=== PATIENT | female | born 1930 | race Caucasian/White ===

== ENCOUNTER 2017-12-05 09:44 | Emergency (ER) | payer OTHER, MEDICARE ==
[~2017-12-05] VITALS: Ht 162.6 cm; Wt 82.2 kg
[~2017-12-05 09:44] MED LIST: ASPI81CH8 PO; IBUP600T44 PO; LSN/10125 PO; OMEG10007 PO; OXYC-57 PO; PRAV10TA39 PO
[2017-12-05 09:50] VITALS: TEMP 36.4; Ht 162.6 cm; Wt 82.2 kg
[2017-12-05 09:59] VITALS: O2SAT 96
--- NOTE | 2017-12-05 10:08 | EMERGENCY ROOM VISIT NOTE ---
History Report prepared by Patrick: Piter Padilla Under the Supervision of: Dr. Chava Sexton M.D. First contact with patient: 09:55 Chief Complaint: CARDIAC ASSESSMENT Stated Complaint: SHARP CHEST PAIN History of Present Illness The patient is a 87 year old female who presents to the Emergency Room with complaints of sharp, stabbing left sided chest pain. The pain is intermittent and started 1 week ago. She denies syncope, SOB, nausea, and vomiting. She has been unable to sleep and states that cold compress has allowed her to rest. The pain does not worsen with movement and states she does not have lower extremity swelling. She reports taking blood pressure medication and has been seeing Dr. Kothari. She has a surgical history significant for mastectomy and cholecystectomy. She denies recent travel and a family history of blood clots. She denies blood thinner use. Source of History: patient Onset: 1 week ago Position: chest (left sided) Quality: stabbing Timing: constant Review of Systems See HPI for pertinent positives & negatives. A total of 10 systems reviewed and were otherwise negative. Past Medical & Surgical Surgical Problems: (1) History of mastectomy (2) Hx of cholecystectomy Social History Smoking Status: Never Smoker Current/Historical Medications Scheduled Aspirin (Chewable Aspirin), 81 MG PO DAILY Cholecalciferol (Vitamin D3), 1,000 INTER.UNIT PO DAILY Hctz/Lisinopril (Lisinopril/Hctz 10/12.5 Mg), 1 EA PO DAILY Valacyclovir Hcl (Valtrex), 1,000 MG PO TID Allergies Coded Allergies: Codeine (Verified Allergy, Severe, CANT BREATHE, 12/05/17) Physical Exam Vital Signs Date Time Temp Pulse Resp B/P (MAP) Pulse Ox O2 Delivery O2 Flow Rate FiO2 12/05/17 12:38 82 18 153/76 94 12/05/17 11:45 76 18 148/78 94 Room Air 12/05/17 10:19 92 Room Air 12/05/17 10:03 87 12/05/17 09:59 96 Room Air 12/05/17 09:50 36.4 89 18 192/83 96 Room Air Physical Exam GENERAL: Patient is anxious appearing and in minimal distress. HEENT: No acute trauma, normocephalic atraumatic, mucous membranes moist, no nasal congestion, no scleral icterus. NECK: No stridor, no adenopathy, no meningismus, trachea is midline. LUNGS: No dyspnea. Clear to auscultation and equal bilaterally. No wheeze, no rhonchi. HEART: Regular rate and rhythm. No murmurs, rubs, gallops appreciated. CHEST: Mild tenderness to left anterior chest. ABDOMEN: Soft, nontender, bowel sounds positive, no masses appreciated, no peritonitis. BACK: No midline tenderness, no CVA tenderness EXTREMITIES: Normal motion all extremities, no cyanosis. Trace edema bilateral lower legs. NEUROLOGIC: Alert and oriented, no acute motor or sensory deficits, no focal weakness, cranial nerves grossly intact. SKIN: No rash, no jaundice, no diaphoresis. Medical Decision & Procedures ER Provider Diagnostic Interpretation: Radiology results and stated below per my review and radiologist interpretation: SINGLE VIEW CHEST CLINICAL HISTORY: Atypical chest pain. FINDINGS: An AP, portable, upright chest radiograph is compared to study dated 08/29/2010. The examination is degraded by portable technique and patient rotation. The heart is mildly enlarged. There is atherosclerotic calcification of the thoracic and. The pulmonary vasculature is noncongested. The lungs and pleural spaces are clear. No pneumothorax is seen. The skeletal structures are osteopenic. The bony thorax is grossly intact. Surgical clips are seen in the left axilla. IMPRESSION: Mild cardiomegaly with no acute cardiopulmonary abnormality. Electronically signed by: Jayesh Aaron M.D. 12/05/2017 10:40 AM Dictated Date/Time: 12/05/2017 10:[address] ANGIOGRAM OF THE CHEST CLINICAL HISTORY: Atypical chest pain. Elevated d-dimer. COMPARISON STUDY: Chest x-ray dated 12/05/2017. TECHNIQUE: Following the IV administration of 81 cc of Optiray 320, CT angiogram of the chest was performed from the upper abdomen to the thoracic inlet utilizing the pulmonary embolus protocol. Images are reviewed in the axial, sagittal, and coronal planes. 3-D MIPS images are created and assessed. IV contrast was administered without complication. A dose lowering technique was utilized adhering to the principles of ALARA. CT DOSE: 266.64 mGy.cm FINDINGS: Thyroid: Imaged portions of the thyroid gland are normal in size and attenuation. Thoracic aorta: There is atherosclerotic calcification of the thoracic aorta, which is normal in caliber and demonstrates standard 3-vessel arch anatomy. No dissection is seen. Pulmonary vasculature: The pulmonary trunk is normal in caliber. There are no filling defects identified in main, lobar, or segmental pulmonary branches to suggest pulmonary embolus. Heart: The heart is enlarged and without pericardial effusion. Lungs and pleural spaces: The lungs and pleural spaces are clear. The trachea and central airways are patent. Mediastinum: There is no mediastinal lymphadenopathy. Miryam: Clear. Axillae: There is no axillary lymphadenopathy. Surgical clips are seen in the left axilla. Upper abdomen: There is a small hiatal hernia. Partially visualized upper abdominal viscera is otherwise within normal limits. Skeletal structures: The skeletal structures are osteopenic. Degenerative change and mild hyperkyphosis are noted in the thoracic spine. No lytic or blastic bony lesions are seen. Soft tissues: There is evidence of bilateral mastectomy. IMPRESSION: 1. There is no evidence of pulmonary embolus in the main, lobar, or segmental pulmonary arteries. 2. The lungs are clear. 3. Cardiomegaly. Electronically signed by: Jayesh Aaron M.D. 12/05/2017 11:43 AM Dictated Date/Time: 12/05/2017 11:40 AM Laboratory Results 12/05/17 10:30 Red Blood Count 4.85, Mean Corpuscular Volume 92.4, Mean Corpuscular Hemoglobin 31.3, Mean Corpuscular Hemoglobin Concent 33.9, Mean Platelet Volume 10.4, Neutrophils (%) (Auto) 69.0, Lymphocytes (%) (Auto) 23.6, Monocytes (%) (Auto) 5.0, Eosinophils (%) (Auto) 1.8, Basophils (%) (Auto) 0.4, Neutrophils # (Auto) 5.60, Lymphocytes # (Auto) 1.92, Monocytes # (Auto) 0.41, Eosinophils # (Auto) 0.15, Basophils # (Auto) 0.03 12/05/17 10:30 Test 12/05/17 10:30 12/05/17 11:53 White Blood Count 8.13 K/uL (4.8-10.8) Red Blood Count 4.85 M/uL (4.2-5.4) Hemoglobin 15.2 g/dL (12.0-16.0) Hematocrit 44.8 % (37-47) Mean Corpuscular Volume 92.4 fL (80-100) Mean Corpuscular Hemoglobin 31.3 pg (25-34) Mean Corpuscular Hemoglobin Concent 33.9 g/dl (32-36) Platelet Count 248 K/uL (130-400) Mean Platelet Volume 10.4 fL (7.4-10.4) Neutrophils (%) (Auto) 69.0 % Lymphocytes (%) (Auto) 23.6 % Monocytes (%) (Auto) 5.0 % Eosinophils (%) (Auto) 1.8 % Basophils (%) (Auto) 0.4 % Neutrophils # (Auto) 5.60 K/uL (1.4-6.5) Lymphocytes # (Auto) 1.92 K/uL (1.2-3.4) Monocytes # (Auto) 0.41 K/uL (0.11-0.59) Eosinophils # (Auto) 0.15 K/uL (0-0.5) Basophils # (Auto) 0.03 K/uL (0-0.2) RDW Standard Deviation 46.2 fL (36.4-46.3) RDW Coefficient of Variation 13.7 % (11.5-14.5) Immature Granulocyte % (Auto) 0.2 % Immature Granulocyte # (Auto) 0.02 K/uL (0.00-0.02) D-Dimer 620 ug/L FEU (0-500) Anion Gap 10.0 mmol/L (3-11) Est Creatinine Clear Calc Drug Dose 42.8 ml/min Estimated GFR () 60.5 Estimated GFR (Non- 52.2 BUN/Creatinine Ratio 19.8 (10-20) Calcium Level 9.2 mg/dl (8.5-10.1) Total Bilirubin 0.4 mg/dl (0.2-1) Direct Bilirubin < 0.1 mg/dl (0-0.2) Aspartate Amino Transf (AST/SGOT) 20 U/L (15-37) Alanine Aminotransferase (ALT/SGPT) 19 U/L (12-78) Alkaline Phosphatase 92 U/L (45-117) Total Creatine Kinase 49 U/L (26-192) Creatine Kinase MB 0.9 ng/ml (0.5-3.6) Creatine Kinase MB Ratio 1.8 (0-3.0) Troponin I < 0.015 ng/ml (0-0.045) Total Protein 7.2 gm/dl (6.4-8.2) Albumin 3.5 gm/dl (3.4-5.0) Lipase 202 U/L (73-393) Bedside Troponin I < 0.030 ng/ml (0-0.045) Laboratory results as reviewed by me. Medications Administered Medications (Trade) Dose Ordered Sig/Ashleigh Route Start Time Stop Time Status Last Admin Dose Admin Valacyclovir HCl (Valtrex Tab) 1,000 mg NOW ONCE PO 12/05/17 12:30 12/05/17 12:31 DC 12/05/17 12:38 1,000 MG ECG Indication: chest pain Rate (beats per minute): 78 Rhythm: normal sinus Findings: ST depression (nonspecific), no acute ischemic change, no ectopy ED Course 0955: The patient was evaluated in room A10. A complete history and physical exam was performed. 1107: I spoke with the patient who is agreeable to a CAT scan of the chest. We discussed observation in the hospital and she adamantly declines. 1226: I discussed the small red rayshawn on her left flank which she feels was a burn from a heating pad. After discussing further, she thinks it may have been shingles and agrees to be treated for a shingles outbreak. 1240: Reevaluated the patient. Discussed results and discharge instructions: She verbalized understanding and agreement. The patient is ready for discharge. Medical Decision Differential: Cardiac Ischemia (STEMI, NSTEMI, Unstable Angina, etc), Aortic Dissection, Arrhythmia, Pulmonary Embolism, Pneumonia, Pneumothorax, MSK, Infectious, Pericarditis/Myocarditis, Esophageal Rupture, Gastrointestinal, amongst other pathologies entertained. 87 yr old female arrives with intermittent stabling left chest pain over last 5 days. Seems to be worse at night and may be a bit with palpation left anterior chest. Small red rayshawn left mid lateral chest which is nontender and patient notes she thinks it was from heating pad. EKG, Trop x 2, CT PE, and labs all look good. Repeat exam of area it does appear she have another area of redness developing more anterior. I suspect this is early shingles and given rash just now developing, thus I feel doing Valtrex reasonable, especially given early symptoms. Will follow up with PCP in next few days for recheck. Discussed RTED if severe pain or other concerns. I do not feel this is ACS with rule out done here. No dissection nor PE on CT. No pneumonia. Stable and discharged to home with family with knowledge to RTED if worsening or other concerns. Medication Reconcilliation Current Medication List: was personally reviewed by me Blood Pressure Screening Patient's blood pressure: Elevated blood pressure Blood pressure disposition: Elevated BP felt to be situational Impression Primary Impression: Intermittent left-sided chest pain Additional Impression: Shingles outbreak Scribe Attestation The scribe's documentation has been prepared under my direction and personally reviewed by me in its entirety. I confirm that the note above accurately reflects all work, treatment, procedures, and medical decision making performed by me. Departure Information Dispostion Home / Self-Care Prescriptions Valacyclovir Hcl (VALTREX) 1 Gm Tab 1000 MG PO TID, #21 TAB Prov: Chava Sexton M.D. 12/05/17 Referrals No Doctor, Assigned (PCP) Patient Instructions ED [place], My [facility] Additional Instructions It is very important you follow up with your primary care provider on Thursday to discuss you pain and further evaluation. Return immediately if worsening of pain, difficulty breathing, passing out or other concerning symptoms. Problem Qualifiers Additional Impression:
[2017-12-05] MEDS ORDERED: CHOL1000 PO (10:39)
[2017-12-05 10:40] LABS: BASO % 0.4 %; BASO ABS # 0.03 K/uL (0-0.2); EOS % 1.8 %; EOS ABS # 0.15 K/uL (0-0.5); HEMATOCRIT 44.8 % (37-47); HEMOGLOBIN 15.2 g/dL (12.0-16.0); IG# 0.02 K/uL (0.00-0.02); LYMPH % 23.6 %; LYMPH ABS # 1.92 K/uL (1.2-3.4); MEAN CELL VOLUME 92.4 fL (80-100); MEAN CORPUSCULAR HEMOGLOBIN 31.3 pg (25-34); MEAN CORPUSCULAR HGB CONC 33.9 g/dl (32-36); MEAN PLATELET VOLUME 10.4 fL (7.4-10.4); MONO ABS # 0.41 K/uL (0.11-0.59); PLATELET COUNT 248 K/uL (130-400); RED CELL DISTRIBUTION WIDTH CV 13.7 % (11.5-14.5); RED CELL DISTRIBUTION WIDTH SD 46.2 fL (36.4-46.3); WHITE BLOOD COUNT 8.13 K/uL (4.8-10.8)
--- NOTE | 2017-12-05 10:42 | DIAGNOSTIC IMAGING REPORT ---
SINGLE VIEW CHEST CLINICAL HISTORY: Atypical chest pain. FINDINGS: An AP, portable, upright chest radiograph is compared to study dated 08/29/2010. The examination is degraded by portable technique and patient rotation. The heart is mildly enlarged. There is atherosclerotic calcification of the thoracic and. The pulmonary vasculature is noncongested. The lungs and pleural spaces are clear. No pneumothorax is seen. The skeletal structures are osteopenic. The bony thorax is grossly intact. Surgical clips are seen in the left axilla. IMPRESSION: Mild cardiomegaly with no acute cardiopulmonary abnormality. Electronically signed by: Jayesh Aaron M.D. 12/05/2017 10:40 AM Dictated Date/Time: 12/05/2017 10:39 AM
[2017-12-05 10:56] LABS: ALBUMIN 3.5 gm/dl (3.4-5.0); ALT/SGPT 19 U/L (12-78); BLOOD UREA NITROGEN 20 mg/dl (7-18); CALCIUM 9.2 mg/dl (8.5-10.1); CARBON DIOXIDE 25 mmol/L (21-32); CREATININE 0.98 mg/dl (0.60-1.20); GLUCOSE 110 mg/dl (70-99); LIPASE 202 U/L (73-393); POTASSIUM 3.8 mmol/L (3.5-5.1); SODIUM 138 mmol/L (136-145)
[2017-12-05 11:01] LABS: ALKALINE PHOSPHATASE 92 U/L (45-117); AST/SGOT 20 U/L (15-37); CKMB 0.9 ng/ml (0.5-3.6); TOTAL PROTEIN 7.2 gm/dl (6.4-8.2)
[2017-12-05] MEDS ORDERED: OPTIRAY 320 IV PRN (11:15)
--- NOTE | 2017-12-05 11:44 | DIAGNOSTIC IMAGING REPORT ---
CT ANGIOGRAM OF THE CHEST CLINICAL HISTORY: Atypical chest pain. Elevated d-dimer. COMPARISON STUDY: Chest x-ray dated 12/05/2017. TECHNIQUE: Following the IV administration of 81 cc of Optiray 320, CT angiogram of the chest was performed from the upper abdomen to the thoracic inlet utilizing the pulmonary embolus protocol. Images are reviewed in the axial, sagittal, and coronal planes. 3-D MIPS images are created and assessed. IV contrast was administered without complication. A dose lowering technique was utilized adhering to the principles of ALARA. CT DOSE: 266.64 mGy.cm FINDINGS: Thyroid: Imaged portions of the thyroid gland are normal in size and attenuation. Thoracic aorta: There is atherosclerotic calcification of the thoracic aorta, which is normal in caliber and demonstrates standard 3-vessel arch anatomy. No dissection is seen. Pulmonary vasculature: The pulmonary trunk is normal in caliber. There are no filling defects identified in main, lobar, or segmental pulmonary branches to suggest pulmonary embolus. Heart: The heart is enlarged and without pericardial effusion. Lungs and pleural spaces: The lungs and pleural spaces are clear. The trachea and central airways are patent. Mediastinum: There is no mediastinal lymphadenopathy. Miryam: Clear. Axillae: There is no axillary lymphadenopathy. Surgical clips are seen in the left axilla. Upper abdomen: There is a small hiatal hernia. Partially visualized upper abdominal viscera is otherwise within normal limits. Skeletal structures: The skeletal structures are osteopenic. Degenerative change and mild hyperkyphosis are noted in the thoracic spine. No lytic or blastic bony lesions are seen. Soft tissues: There is evidence of bilateral mastectomy. IMPRESSION: 1. There is no evidence of pulmonary embolus in the main, lobar, or segmental pulmonary arteries. 2. The lungs are clear. 3. Cardiomegaly. Electronically signed by: Jayesh Aaron M.D. 12/05/2017 11:43 AM Dictated Date/Time: 12/05/2017 11:40 AM
[2017-12-05] MEDS ORDERED: VALA1TAB2 PO (12:26)
[2017-12-05 12:38] VITALS: BP 153/76; PULSE 82; O2SAT 94
== END 2017-12-05 12:40 | disposition home or self-care (01) ==
LOC: C.EDB 09:48 → C.EDA 12:40
DX: R07.9 Chest pain, unspecified (principal); B02.9 Zoster without complications; Z79.82 Long term (current) use of aspirin